=== PATIENT | female | born 1960 | race African-American/Black ===

== ENCOUNTER 2017-03-26 23:40 | Inpatient (IN) | payer MEDICAID ==
[~2017-03-26] VITALS: Ht 157.5 cm; Wt 61.2 kg
[2017-03-27] MEDS ORDERED: DIPHENHYDRAMINE 50MG/ML VIAL IV ONE
[2017-03-27] MEDS ORDERED: METHYLPREDNISOLONE SOD SUCC 125 MG/2 ML VIAL IV ONE
[2017-03-27] MEDS ORDERED: METHYLPREDNISOLONE SOD SUCC 125 MG/2 ML VIAL ONE (00:04)
[2017-03-27] MEDS ORDERED: DIPHENHYDRAMINE 50MG/ML VIAL ONE (00:04)
[2017-03-27] MEDS ORDERED: FAMOTIDINE 20MG/2ML VIAL IV ONE ×2 (00:05)
[2017-03-27 00:32] LABS: BASOPHILS % 1.2 % (0.0-2.0); EOSINOPHILS % 0.5 % (0.0-5.0); HEMATOCRIT. 40.7 % (36.0-48.0); HEMOGLOBIN. 13.6 g/dL (12.0-16.0); LYMPHOCYTES % 33.5 % (20.0-50.0); MEAN PLATELET VOLUME 8.2 fl (7.4-10.4); MONOCYTES % 6.6 % (2.0-8.0); NEUTROPHILS % 58.2 % (40.0-76.0); PLATELET 203 x1000/uL (130-400); RED BLOOD CELL COUNT 4.52 mill/uL (4.2-5.4); RED CELL DISTRIBUTION WIDTH 15.6 % (11.6-14.6)
[2017-03-27 00:51] LABS: CARBON DIOXIDE 26 mEq/L (21-32); CHLORIDE 107 mEq/L (98-107); TROPONIN I < 0.02 ng/mL (0.00-0.04)
[2017-03-27 09:51] VITALS: BP 119/84
[2017-03-27] MEDS ORDERED: DONE5TAB33 PO (10:55)
[2017-03-27] MEDS ORDERED: AMLO10TA4 PO (10:55)
[2017-03-27] MEDS ORDERED: LISI10TA5 PO (10:55)
[2017-03-27] MEDS ORDERED: LEVE750T4 PO (10:55)
[2017-03-27] MEDS ORDERED: SODIUM CHLORIDE 0.9% 500 ML IV SCH (11:03)
[2017-03-27] MEDS ORDERED: HYDROCODONE/ACETAMINOPHEN 5/325MG TABLET PO PRN (11:15)
[2017-03-27] MEDS ORDERED: ONDANSETRON HCL 4MG/2ML VIAL IV PRN (11:15)
[2017-03-27] MEDS ORDERED: IPRATROPIUM/ALBUTEROL 0.5-3(2.5)MG/3ML NEB INH PRN (11:15)
[2017-03-27] MEDS ORDERED: DIPHENHYDRAMINE 50MG/ML VIAL IV SCH (11:15)
[2017-03-27] MEDS ORDERED: METHYLPREDNISOLONE SOD SUCC 40 MG/ML VIAL IV SCH (11:15)
[2017-03-27] MEDS ORDERED: IPRATROPIUM/ALBUTEROL 0.5-3(2.5)MG/3ML NEB HHN SCH (11:15)
[2017-03-27 11:36] VITALS: BP 115/78
[2017-03-27] MEDS: DIPHENHYDRAMINE 50MG/ML VIAL IV SCH ×3 (12:00→23:57)
[2017-03-27] MEDS: METHYLPREDNISOLONE SOD SUCC 40 MG/ML VIAL IV SCH ×2 (12:50→20:59)
[2017-03-27] MEDS: AMLODIPINE 2.5MG TABLET PO SCH (12:50)
[2017-03-27 15:34] VITALS: BP 111/75
[2017-03-27] MEDS: LEVETIRACETAM 500MG TABLET PO SCH (18:40)
[2017-03-27 20:00] VITALS: BP 123/81
[2017-03-27] MEDS: FAMOTIDINE 20MG/2ML VIAL IV SCH (20:59)
[2017-03-27] MEDS ORDERED: FAMOTIDINE 20MG/2ML VIAL IV SCH (21:00)
[2017-03-28] VITALS: BP 119/78
[2017-03-28 04:00] VITALS: BP 110/71
[2017-03-28] MEDS: METHYLPREDNISOLONE SOD SUCC 40 MG/ML VIAL IV SCH ×2 (05:43→13:06)
[2017-03-28] MEDS: DIPHENHYDRAMINE 50MG/ML VIAL IV SCH ×2 (05:43→12:59)
[2017-03-28 08:00] VITALS: BP 118/81
[2017-03-28] MEDS ORDERED: ACETAMINOPHEN 325MG TABLET PO PRN (08:45)
[2017-03-28] MEDS ORDERED: DONEPEZIL HCL 5MG TABLET PO SCH (09:00)
[2017-03-28] MEDS: AMLODIPINE 2.5MG TABLET PO SCH (09:05)
[2017-03-28] MEDS: FAMOTIDINE 20MG/2ML VIAL IV SCH (09:06)
[2017-03-28] MEDS: LEVETIRACETAM 500MG TABLET PO SCH (09:06)
[2017-03-28 12:00] VITALS: BP 132/96
[2017-03-28 14:05] VITALS: BP 132/96
== END 2017-03-28 15:00 | disposition home or self-care (01) | DRG 811 ==
LOC: ER 23:51 → 8WST 03-27 01:40 → ENRESERV 03-27 09:24 → 8WST 03-27 10:02
PROVIDERS: ADMIT Internal Medicine; ATTEND Internal Medicine
DX: T78.3XXA Angioneurotic edema, initial encounter (principal); I10 Essential (primary) hypertension; F10.21 Alcohol dependence, in remission; F17.210 Nicotine dependence, cigarettes, uncomplicated; T46.4X5A Adverse effect of angiotensin-converting-enzyme inhibitors, initial encounter; G40.909 Epilepsy, unspecified, not intractable, without status epilepticus; Z88.8 Allergy status to other drugs, medicaments and biological substances; Y92.89 Other specified places as the place of occurrence of the external cause; Z71.6 Tobacco abuse counseling
CPT/HCPCS: 36415; 71010; 80053; 84484; 85025; 93005; 96374; 96375; 99285; J1200; J2920; J2930; J3490; J7040

== ENCOUNTER 2021-02-13 14:38 | Emergency (ER) | payer MEDICAID, OTHER ==
[~2021-02-13] VITALS: Ht 152.4 cm; Wt 58.0 kg
[~2021-02-13 14:38] MED LIST: AMLO10TA4 PO; DONE5TAB33 PO; LEVE750T4 PO
[2021-02-13 23:12] LABS: HEMATOCRIT. 22.6 % (36.0-48.0); HEMOGLOBIN. 7.1 g/dL (12.0-16.0); MEAN CORPUSCULAR HEMOGLOBIN 22.5 pg (28.0-32.0); MEAN CORPUSCULAR VOLUME 71.5 fL (81.0-99.0); MEAN PLATELET VOLUME 7.6 fl (7.4-10.4); PLATELET 350 x1000/uL (130-400); RED BLOOD CELL COUNT 3.16 mill/uL (4.2-5.4); RED CELL DISTRIBUTION WIDTH 19.6 % (11.6-14.6)
[2021-02-13 23:18] LABS: CHLORIDE 109 mEq/L (98-107)
[2021-02-14] MEDS ORDERED: POTASSIUM CHLORIDE 20MEQ TABLET SR PO ONE
[2021-02-14] MEDS ORDERED: FERR-71 MT (02:01)
[2021-02-14 03:27] VITALS: BP 128/79
[2021-02-14 04:30] LABS: PLATELET ESTIMATE NORMAL
== END 2021-02-14 03:30 | disposition home or self-care (01) ==
LOC: ER 14:38
DX: R06.02 Shortness of breath (principal); D50.9 Iron deficiency anemia, unspecified; I10 Essential (primary) hypertension; Z98.890 Other specified postprocedural states
CPT/HCPCS: 36415; 71045; 71250; 80053; 83880; 84484; 85025; 85379; 93005; 93970; 99285

== ENCOUNTER 2021-03-03 18:03 | Inpatient (IN) | payer MEDICARE, OTHER ==
[~2021-03-03] VITALS: Ht 152.4 cm; Wt 54.0 kg
[~2021-03-03 18:03] MED LIST changes: +FERR-71 MT
[2021-03-03 20:38] LABS: CHLORIDE 110 mEq/L (98-107)
[2021-03-03 23:08] LABS: MEAN CORPUSCULAR HEMOGLOBIN 20.8 pg (28.0-32.0); MEAN CORPUSCULAR VOLUME 69.7 fL (81.0-99.0); MEAN PLATELET VOLUME 7.2 fl (7.4-10.4); PLATELET 421 x1000/uL (130-400); RED BLOOD CELL COUNT 3.02 mill/uL (4.2-5.4); RED CELL DISTRIBUTION WIDTH 19.8 % (11.6-14.6)
[2021-03-03 23:14] LABS: HEMOGLOBIN. 6.3 g/dL (12.0-16.0)
[2021-03-03 23:34] LABS: PLATELET ESTIMATE SLIGHTLY INCREASED
[2021-03-04] MEDS ORDERED: SODIUM CHLORIDE 0.9% 1,000 ML IV ONE (00:30)
[2021-03-04 08:40] VITALS: BP 118/70
[2021-03-04] MEDS ORDERED: ONDANSETRON HCL 4MG/2ML INJ IV PRN (08:45)
[2021-03-04] MEDS ORDERED: CLONIDINE 0.1MG TABLET PO PRN (08:45)
[2021-03-04] MEDS ORDERED: IPRATROPIUM/ALBUTEROL 0.5-3(2.5)MG/3ML NEB HHN PRN (08:45)
[2021-03-04] MEDS ORDERED: DIPHENHYDRAMINE 50MG/ML VIAL IV PRN (08:45)
[2021-03-04] MEDS ORDERED: ACETAMINOPHEN 325MG TABLET PO PRN (08:45)
[2021-03-04 12:00] VITALS: BP 118/70
[2021-03-04 16:00] VITALS: BP 128/82
[2021-03-04 21:04] VITALS: BP 131/81
[2021-03-05 00:10] VITALS: BP 117/79
[2021-03-05 06:46] LABS: HEMATOCRIT. 23.9 % (36.0-48.0); HEMOGLOBIN. 7.5 g/dL (12.0-16.0); MEAN CORPUSCULAR HEMOGLOBIN 22.4 pg (28.0-32.0); MEAN CORPUSCULAR VOLUME 71.3 fL (81.0-99.0); MEAN PLATELET VOLUME 7.9 fl (7.4-10.4); PLATELET 415 x1000/uL (130-400); RED BLOOD CELL COUNT 3.35 mill/uL (4.2-5.4); RED CELL DISTRIBUTION WIDTH 21.2 % (11.6-14.6)
[2021-03-05 06:57] LABS: CHLORIDE 113 mEq/L (98-107)
[2021-03-05 07:05] LABS: LDL CHOLESTEROL 55 mg/dL (5-100)
[2021-03-05 07:07] LABS: TOTAL IRON BINDING CAPACITY 376 ug/dL (250-450)
[2021-03-05 07:08] LABS: HDL CHOLESTEROL 93 mg/dL (40-59)
[2021-03-05 07:21] LABS: FOLIC ACID (FOLATE) SERUM 13.5 ng/mL (>5.38)
[2021-03-05] MEDS: FERROUS SULFATE 325MG TABLET PO SCH ×2 (12:15→18:35)
[2021-03-05 14:04] LABS: PLATELET ESTIMATE INCREASED
[2021-03-05] MEDS ORDERED: POTASSIUM CHLORIDE 20MEQ TABLET SR PO NR (17:45)
[2021-03-05] MEDS: DONEPEZIL HCL 5MG TABLET PO SCH (18:36)
[2021-03-05] MEDS: AMLODIPINE 10MG TABLET PO SCH (18:36)
[2021-03-05 20:00] VITALS: BP 126/79
[2021-03-05] MEDS: LEVETIRACETAM 250MG TABLET PO SCH (21:38)
[2021-03-06] VITALS: BP 120/85
[2021-03-06 04:00] VITALS: BP 111/77
[2021-03-06 06:02] LABS: CHLORIDE 109 mEq/L (98-107)
[2021-03-06 06:16] LABS: HEMATOCRIT. 26.2 % (36.0-48.0); MEAN CORPUSCULAR HEMOGLOBIN 22.1 pg (28.0-32.0); MEAN CORPUSCULAR VOLUME 72.2 fL (81.0-99.0); PLATELET 426 x1000/uL (130-400); RED BLOOD CELL COUNT 3.63 mill/uL (4.2-5.4); RED CELL DISTRIBUTION WIDTH 21.4 % (11.6-14.6)
[2021-03-06 08:00] VITALS: BP 93/71
[2021-03-06] MEDS: DONEPEZIL HCL 5MG TABLET PO SCH (08:56)
[2021-03-06] MEDS: FERROUS SULFATE 325MG TABLET PO SCH ×2 (08:57→13:21)
[2021-03-06] MEDS: AMLODIPINE 10MG TABLET PO SCH (08:57)
[2021-03-06] MEDS: LEVETIRACETAM 250MG TABLET PO SCH ×2 (08:57→09:29)
[2021-03-06 12:00] VITALS: BP 109/70
[2021-03-06 12:15] VITALS: BP 111/77
[2021-03-06 21:23] LABS: PLATELET ESTIMATE INCREASED
== END 2021-03-06 15:28 | disposition home or self-care (01) | DRG 812 ==
LOC: ER 18:03 → 6EST 03-04 01:40 → ENRESERV 03-04 07:21 → CANRESERV 03-04 07:21 → ENRESERV 03-04 07:43
PROVIDERS: ADMIT Internal Medicine; ATTEND Internal Medicine
PROC: 30233N1 Transfusion of Nonautologous Red Blood Cells into Peripheral Vein, Percutaneous Approach (ICD-10-PCS; principal; 2021-03-04)
DX: D50.9 Iron deficiency anemia, unspecified (principal); G40.909 Epilepsy, unspecified, not intractable, without status epilepticus; I10 Essential (primary) hypertension; F17.200 Nicotine dependence, unspecified, uncomplicated; Z88.8 Allergy status to other drugs, medicaments and biological substances; Z79.899 Other long term (current) drug therapy; Z98.891 History of uterine scar from previous surgery
CPT/HCPCS: 36415; 71045; 80048; 80053; 80061; 82607; 82728; 82746; 83540; 83550; 84443; 85025; 86850; 86900; 86920; 93005; 93970; 99285; J7030; P9016

== ENCOUNTER 2021-06-10 16:11 | Inpatient (IN) | payer MEDICARE, MEDICAID ==
[~2021-06-10] VITALS: Ht 165.1 cm; Wt 58.5 kg
[2021-06-10 17:16] LABS: BASOPHILS % 0.8 % (0.0-2.0); HEMATOCRIT. 37.8 % (36.0-48.0); HEMOGLOBIN. 12.1 g/dL (12.0-16.0); MEAN CORPUSCULAR VOLUME 93.7 fL (81.0-99.0); MEAN PLATELET VOLUME 8.5 fl (7.4-10.4); MONOCYTES % 9.9 % (2.0-8.0); NEUTROPHILS % 73.3 % (40.0-76.0); PLATELET 211 x1000/uL (130-400); RED BLOOD CELL COUNT 4.03 mill/uL (4.2-5.4)
[2021-06-10 17:22] LABS: CHLORIDE 109 mEq/L (98-107)
[2021-06-10 17:28] LABS: ETHANOL BLOOD < 10 mg/dL
[2021-06-10] MEDS ORDERED: ASPIRIN 325MG EC TABLET PO ONE (18:15)
[2021-06-10] MEDS ORDERED: ONDANSETRON HCL 4MG/2ML INJ IV STA (18:32)
[2021-06-10] MEDS ORDERED: SODIUM CHLORIDE 0.9% 1,000 ML IV ONE (18:45)
[2021-06-10 19:23] LABS: CLARITY URINE CLEAR (CLEAR); COLOR URINE YELLOW (YELLOW); KETONES URINE NEGATIVE (NEGATIVE); LEUKOCYTE ESTERASE URINE NEGATIVE (NEGATIVE); NITRITE URINE NEGATIVE (NEGATIVE); OCCULT BLOOD URINE NEGATIVE (NEGATIVE); PROTEIN URINE 1+ (NEGATIVE); SPECIFIC GRAVITY URINE 1.016 (1.005-1.030)
[2021-06-10 19:46] LABS: *BENZODIAZEPINES SCREEN URINE NEGATIVE (NEGATIVE); *COCAINE SCREEN URINE NEGATIVE (NEGATIVE); METHADONE URINE SCREEN NEGATIVE (NEGATIVE); OPIATES URINE SCREEN NEGATIVE (NEGATIVE)
[2021-06-10 19:47] LABS: *AMPHETAMINES SCREEN URINE NEGATIVE (NEGATIVE); *BARBITURATES SCREEN URINE NEGATIVE (NEGATIVE); CANNABINOID URINE SCREEN NEGATIVE (NEGATIVE); PHENCYCLIDINE URINE SCREEN NEGATIVE (NEGATIVE)
[2021-06-10] MEDS ORDERED: IOHEXOL-350 100 ML BOTTLE ONE (21:34)
[2021-06-10 22:57] VITALS: BP 154/89
[2021-06-11] VITALS (14 sets, daily range): BP systolic 120–154; BP diastolic 62–117
[2021-06-11] MEDS ORDERED: LORAZEPAM 2MG/ML CPJ IM PRN ×2 (07:00→14:15)
[2021-06-11] MEDS: ASPIRIN 81MG TABLET PO SCH (09:46)
[2021-06-11] MEDS: AMLODIPINE 10MG TABLET PO SCH (09:46)
[2021-06-11] MEDS: ENOXAPARIN 40MG/0.4ML SYR SUBCUT SCH (09:46)
[2021-06-11] MEDS ORDERED: POTASSIUM CHLORIDE 20MEQ TABLET SR PO SCH (13:45)
[2021-06-11] MEDS ORDERED: LEVETIRACETAM 500 MG in SODIUM CHLORIDE 0.9% 100 ML IV SCH (14:15)
[2021-06-11] MEDS ORDERED: LEVETIRACETAM 500MG PREMIX 100 ML IV SCH ×2 (15:00)
[2021-06-11] MEDS ORDERED: LEVETIRACETAM 500MG PREMIX 100 ML IV NR (16:30)
[2021-06-11] MEDS ORDERED: THIAMINE HCL 100 MG in SODIUM CHLORIDE 0.9% 49 ML IV NR (16:30)
[2021-06-11 17:58] LABS: BG BASE EXCESS 4.6 mmol/L (-2.0-2.0); BG CARBOXYHEMOGLOBIN 0.3 % (0.5-1.5); BG DEOXYHEMOGLOBIN 1.5 % (0.0-5.0); BG HCO3 ACT 28.4 mmol/L (22.0-26.0); BG METHEMOGLOBIN 0.3 % (0.0-1.5); BG OXYGEN SATURATION 98.5 % (92.0-98.5); BG OXYHEMOGLOBIN 97.9 % (94.0-97.0); BG PCO2 39.4 mmHg (35.0-45.0); BG PH 7.476 (7.350-7.450); BG PO2 126.4 mmHg (75.0-100.0); BG SAMPLE SITE LEFT RADIAL; BG TOTAL HEMOGLOBIN 12.9 g/dL (12.0-18.0); BG VENT MODE NASAL CANNULA
[2021-06-11] MEDS: LORAZEPAM 2MG/ML CPJ IV PRN (18:34)
[2021-06-11] MEDS ORDERED: LIDOCAINE HCL/PF 1% 2ML VIAL ONE (18:48)
[2021-06-11 19:10] LABS: BG BASE EXCESS 1.2 mmol/L (-2.0-2.0); BG CARBOXYHEMOGLOBIN 0.2 % (0.5-1.5); BG DEOXYHEMOGLOBIN 7.4 % (0.0-5.0); BG FRACTION INSPIRED OXYGEN 40; BG HCO3 ACT 24.8 mmol/L (22.0-26.0); BG METHEMOGLOBIN 0.2 % (0.0-1.5); BG OXYGEN SATURATION 92.6 % (92.0-98.5); BG OXYHEMOGLOBIN 92.2 % (94.0-97.0); BG PCO2 35.6 mmHg (35.0-45.0); BG PO2 66.3 mmHg (75.0-100.0); BG SAMPLE SITE RIGHT RADIAL; BG TOTAL HEMOGLOBIN 12.9 g/dL (12.0-18.0); BG TOTAL RESPIRATORY RATE 24 b/min; BG VENT MODE NASAL CANNULA
[2021-06-11] MEDS ORDERED: LORAZEPAM 2MG/ML CPJ IV NR (19:15)
[2021-06-11] MEDS ORDERED: KCL 20 MEQ/100 ML IV SCH (19:30)
[2021-06-11] MEDS ORDERED: PHENYTOIN SODIUM 1,000 MG in SODIUM CHLORIDE 0.9% 80 ML IV NR (20:00)
[2021-06-11] MEDS: ATORVASTATIN CALCIUM 40MG TABLET PO SCH (21:00)
[2021-06-11] MEDS: ACETAMINOPHEN 650MG SUPP PR PRN (21:28)
[2021-06-11] MEDS: KCL 20MEQ/100ML PREMIX 100 ML IV SCH (22:22)
[2021-06-11] MEDS: LEVETIRACETAM 1,000 MG in SODIUM CHLORIDE 0.9% 100 ML IV SCH (23:59)
[2021-06-12] VITALS (40 sets, daily range): BP systolic 73–166; BP diastolic 32–115
[2021-06-12] MEDS: KCL 20MEQ/100ML PREMIX 100 ML IV SCH ×3 (00:02→12:52)
[2021-06-12 00:13] LABS: CLARITY URINE CLEAR (CLEAR); COLOR URINE YELLOW (YELLOW); KETONES URINE 1+ (NEGATIVE); LEUKOCYTE ESTERASE URINE NEGATIVE (NEGATIVE); NITRITE URINE NEGATIVE (NEGATIVE); OCCULT BLOOD URINE NEGATIVE (NEGATIVE); PH URINE 6.5 (4.5-8.0); PROTEIN URINE 2+ (NEGATIVE); SPECIFIC GRAVITY URINE 1.019 (1.005-1.030)
[2021-06-12] MEDS: LORAZEPAM 2MG/ML CPJ IV PRN ×3 (05:15→20:59)
[2021-06-12 05:32] LABS: BASOPHILS % 0.3 % (0.0-2.0); EOSINOPHILS % 0.2 % (0.0-5.0); HEMATOCRIT. 36.5 % (36.0-48.0); HEMOGLOBIN. 11.5 g/dL (12.0-16.0); LYMPHOCYTES % 13.1 % (20.0-50.0); MEAN CORPUSCULAR HEMOGLOBIN 29.8 pg (28.0-32.0); MEAN CORPUSCULAR VOLUME 94.3 fL (81.0-99.0); MEAN PLATELET VOLUME 8.9 fl (7.4-10.4); MONOCYTES % 9.1 % (2.0-8.0); NEUTROPHILS % 77.3 % (40.0-76.0); PLATELET 210 x1000/uL (130-400); RED BLOOD CELL COUNT 3.87 mill/uL (4.2-5.4); RED CELL DISTRIBUTION WIDTH 18.2 % (11.6-14.6)
[2021-06-12 05:34] LABS: CHLORIDE 110 mEq/L (98-107)
[2021-06-12] MEDS: AMLODIPINE 10MG TABLET PO SCH (08:47)
[2021-06-12] MEDS: LEVETIRACETAM 1,000 MG in SODIUM CHLORIDE 0.9% 100 ML IV SCH ×2 (08:55→21:01)
[2021-06-12] MEDS: ENOXAPARIN 40MG/0.4ML SYR SUBCUT SCH (08:55)
[2021-06-12] MEDS: ASPIRIN 81MG TABLET PO SCH (08:56)
[2021-06-12] MEDS: CHLORDIAZEPOXIDE 25MG CAPSULE PO SCH ×2 (12:03→21:31)
[2021-06-12] MEDS: THIAMINE HCL 100MG TABLET PO SCH (13:09)
[2021-06-12] MEDS: MULTIVITAMINS,THER W-MINERALS TABLET PO SCH (13:09)
[2021-06-12] MEDS: FOLIC ACID 1MG TABLET PO SCH (13:10)
[2021-06-12] MEDS: ATORVASTATIN CALCIUM 40MG TABLET PO SCH (21:31)
[2021-06-13] VITALS (12 sets, daily range): BP systolic 113–178; BP diastolic 65–99
[2021-06-13] MEDS: CHLORDIAZEPOXIDE 25MG CAPSULE PO SCH ×3 (06:26→21:23)
[2021-06-13 08:51] LABS: CHLORIDE 107 mEq/L (98-107)
[2021-06-13] MEDS ORDERED: POTASSIUM CHLORIDE 20MEQ TABLET SR PO NR ×2 (09:00→21:00)
[2021-06-13 09:02] LABS: BASOPHILS % 0.4 % (0.0-2.0); HEMATOCRIT. 36.3 % (36.0-48.0); HEMOGLOBIN. 11.5 g/dL (12.0-16.0); LYMPHOCYTES % 14.8 % (20.0-50.0); MEAN CORPUSCULAR HEMOGLOBIN 30.1 pg (28.0-32.0); MEAN CORPUSCULAR VOLUME 94.8 fL (81.0-99.0); MEAN PLATELET VOLUME 8.9 fl (7.4-10.4); MONOCYTES % 10.7 % (2.0-8.0); NEUTROPHILS % 74.1 % (40.0-76.0); PLATELET 202 x1000/uL (130-400); RED BLOOD CELL COUNT 3.83 mill/uL (4.2-5.4); RED CELL DISTRIBUTION WIDTH 18.3 % (11.6-14.6)
[2021-06-13] MEDS: FOLIC ACID 1MG TABLET PO SCH (09:44)
[2021-06-13] MEDS: ASPIRIN 81MG TABLET PO SCH (09:44)
[2021-06-13] MEDS: THIAMINE HCL 100MG TABLET PO SCH (09:44)
[2021-06-13] MEDS: MULTIVITAMINS,THER W-MINERALS TABLET PO SCH (09:44)
[2021-06-13] MEDS: ENOXAPARIN 40MG/0.4ML SYR SUBCUT SCH (09:45)
[2021-06-13] MEDS: AMLODIPINE 10MG TABLET PO SCH (09:45)
[2021-06-13] MEDS: LEVETIRACETAM 1,000 MG in SODIUM CHLORIDE 0.9% 100 ML IV SCH ×2 (10:22→21:23)
[2021-06-13] MEDS: ATORVASTATIN CALCIUM 40MG TABLET PO SCH (21:23)
[2021-06-13] MEDS: LORAZEPAM 2MG/ML CPJ IV PRN (23:46)
[2021-06-14] VITALS (12 sets, daily range): BP systolic 111–146; BP diastolic 54–96
[2021-06-14] MEDS: CHLORDIAZEPOXIDE 25MG CAPSULE PO SCH ×3 (05:27→20:50)
[2021-06-14 07:05] LABS: CHLORIDE 108 mEq/L (98-107)
[2021-06-14 07:14] LABS: BASOPHILS % 0.4 % (0.0-2.0); EOSINOPHILS % 0.3 % (0.0-5.0); HEMATOCRIT. 38.1 % (36.0-48.0); HEMOGLOBIN. 11.7 g/dL (12.0-16.0); LYMPHOCYTES % 16.9 % (20.0-50.0); MEAN CORPUSCULAR HEMOGLOBIN 30.3 pg (28.0-32.0); MEAN CORPUSCULAR VOLUME 98.4 fL (81.0-99.0); MEAN PLATELET VOLUME 8.5 fl (7.4-10.4); MONOCYTES % 9.5 % (2.0-8.0); NEUTROPHILS % 72.9 % (40.0-76.0); PLATELET 169 x1000/uL (130-400); RED BLOOD CELL COUNT 3.87 mill/uL (4.2-5.4); RED CELL DISTRIBUTION WIDTH 18.3 % (11.6-14.6)
[2021-06-14] MEDS: ENOXAPARIN 40MG/0.4ML SYR SUBCUT SCH (08:27)
[2021-06-14] MEDS: MULTIVITAMINS,THER W-MINERALS TABLET PO SCH (08:27)
[2021-06-14] MEDS: THIAMINE HCL 100MG TABLET PO SCH (08:27)
[2021-06-14] MEDS: ASPIRIN 81MG TABLET PO SCH (08:27)
[2021-06-14] MEDS: LEVETIRACETAM 1,000 MG in SODIUM CHLORIDE 0.9% 100 ML IV SCH ×2 (08:27→21:05)
[2021-06-14] MEDS: FOLIC ACID 1MG TABLET PO SCH (08:27)
[2021-06-14] MEDS: AMLODIPINE 10MG TABLET PO SCH (08:28)
[2021-06-14] MEDS ORDERED: POTASSIUM CHLORIDE 20MEQ TABLET SR PO ONE ×3 (11:00→17:00)
[2021-06-14] MEDS: ATORVASTATIN CALCIUM 40MG TABLET PO SCH (20:51)
[2021-06-15] VITALS (12 sets, daily range): BP systolic 112–151; BP diastolic 58–99
[2021-06-15] MEDS: CHLORDIAZEPOXIDE 25MG CAPSULE PO SCH ×3 (05:43→21:22)
[2021-06-15 08:34] LABS: BASOPHILS % 0.2 % (0.0-2.0); EOSINOPHILS % 0.2 % (0.0-5.0); HEMATOCRIT. 34.1 % (36.0-48.0); LYMPHOCYTES % 15.8 % (20.0-50.0); MEAN CORPUSCULAR HEMOGLOBIN 30.5 pg (28.0-32.0); MEAN CORPUSCULAR VOLUME 94.5 fL (81.0-99.0); MEAN PLATELET VOLUME 9.1 fl (7.4-10.4); MONOCYTES % 12.3 % (2.0-8.0); NEUTROPHILS % 71.5 % (40.0-76.0); PLATELET 195 x1000/uL (130-400); RED BLOOD CELL COUNT 3.61 mill/uL (4.2-5.4); RED CELL DISTRIBUTION WIDTH 17.9 % (11.6-14.6)
[2021-06-15] MEDS: FOLIC ACID 1MG TABLET PO SCH (08:36)
[2021-06-15] MEDS: THIAMINE HCL 100MG TABLET PO SCH (08:36)
[2021-06-15] MEDS: ASPIRIN 81MG TABLET PO SCH (08:36)
[2021-06-15] MEDS: MULTIVITAMINS,THER W-MINERALS TABLET PO SCH (08:36)
[2021-06-15] MEDS: ENOXAPARIN 40MG/0.4ML SYR SUBCUT SCH (08:37)
[2021-06-15] MEDS: AMLODIPINE 10MG TABLET PO SCH (08:38)
[2021-06-15] MEDS: LORAZEPAM 2MG/ML CPJ IV PRN (08:39)
[2021-06-15] MEDS: LEVETIRACETAM 1,000 MG in SODIUM CHLORIDE 0.9% 100 ML IV SCH (08:42)
[2021-06-15 08:54] LABS: CHLORIDE 111 mEq/L (98-107)
[2021-06-15] MEDS ORDERED: LISINOPRIL 2.5MG TABLET PO SCH (09:15)
[2021-06-15] MEDS ORDERED: NIFEDIPINE XL 30MG TAB PO SCH (09:30)
[2021-06-15] MEDS: METOPROLOL TARTRATE 25MG TABLET PO SCH ×2 (09:49→20:38)
[2021-06-15] MEDS: LEVETIRACETAM 500MG TABLET PO SCH (20:30)
[2021-06-15] MEDS: ATORVASTATIN CALCIUM 40MG TABLET PO SCH (20:30)
[2021-06-15] MEDS ORDERED: DIPHENHYDRAMINE 50MG/ML VIAL IV PRN (22:30)
[2021-06-16] VITALS (12 sets, daily range): BP systolic 90–159; BP diastolic 57–100
[2021-06-16] MEDS ORDERED: CHLORDIAZEPOXIDE 25MG CAPSULE PO SCH
[2021-06-16] MEDS: CHLORDIAZEPOXIDE 25MG CAPSULE PO SCH ×4 (00:51→18:07)
[2021-06-16] MEDS: ENOXAPARIN 40MG/0.4ML SYR SUBCUT SCH (09:36)
[2021-06-16] MEDS: MULTIVITAMINS,THER W-MINERALS TABLET PO SCH (09:37)
[2021-06-16] MEDS: ASPIRIN 81MG TABLET PO SCH (09:37)
[2021-06-16] MEDS: AMLODIPINE 10MG TABLET PO SCH (09:37)
[2021-06-16] MEDS: THIAMINE HCL 100MG TABLET PO SCH (09:38)
[2021-06-16] MEDS: LEVETIRACETAM 500MG TABLET PO SCH ×2 (09:39→21:28)
[2021-06-16] MEDS: FOLIC ACID 1MG TABLET PO SCH (09:39)
[2021-06-16] MEDS: METOPROLOL TARTRATE 25MG TABLET PO SCH ×2 (09:40→21:35)
[2021-06-16 10:12] LABS: BASOPHILS % 0.3 % (0.0-2.0); EOSINOPHILS % 0.2 % (0.0-5.0); HEMATOCRIT. 34.2 % (36.0-48.0); HEMOGLOBIN. 10.8 g/dL (12.0-16.0); LYMPHOCYTES % 14.3 % (20.0-50.0); MEAN CORPUSCULAR HEMOGLOBIN 29.5 pg (28.0-32.0); MEAN CORPUSCULAR VOLUME 93.2 fL (81.0-99.0); MONOCYTES % 13.4 % (2.0-8.0); NEUTROPHILS % 71.8 % (40.0-76.0); PLATELET 207 x1000/uL (130-400); RED BLOOD CELL COUNT 3.67 mill/uL (4.2-5.4)
[2021-06-16 10:17] LABS: CHLORIDE 108 mEq/L (98-107)
[2021-06-16 12:00] LABS: BG BASE EXCESS 0.4 mmol/L (-2.0-2.0); BG CARBOXYHEMOGLOBIN 0.3 % (0.5-1.5); BG DEOXYHEMOGLOBIN 8.9 % (0.0-5.0); BG FRACTION INSPIRED OXYGEN 21; BG HCO3 ACT 23.4 mmol/L (22.0-26.0); BG METHEMOGLOBIN 0.1 % (0.0-1.5); BG OXYGEN SATURATION 91.1 % (92.0-98.5); BG OXYHEMOGLOBIN 90.7 % (94.0-97.0); BG PCO2 32.7 mmHg (35.0-45.0); BG PH 7.473 (7.350-7.450); BG PO2 62.5 mmHg (75.0-100.0); BG SAMPLE SITE RIGHT RADIAL; BG TOTAL HEMOGLOBIN 12.1 g/dL (12.0-18.0); BG VENT MODE ROOM AIR
[2021-06-16] MEDS: ATORVASTATIN CALCIUM 40MG TABLET PO SCH (21:26)
[2021-06-16] MEDS: ACETAMINOPHEN 650MG SUPP PR PRN (21:35)
[2021-06-17] VITALS (11 sets, daily range): BP systolic 102–163; BP diastolic 53–101
[2021-06-17] MEDS: CHLORDIAZEPOXIDE 25MG CAPSULE PO SCH ×4 (00:08→17:43)
[2021-06-17] MEDS: LORAZEPAM 2MG/ML CPJ IV PRN (00:54)
[2021-06-17] MEDS: MULTIVITAMINS,THER W-MINERALS TABLET PO SCH (08:27)
[2021-06-17] MEDS: LEVETIRACETAM 500MG TABLET PO SCH ×2 (08:27→20:51)
[2021-06-17] MEDS: ASPIRIN 81MG TABLET PO SCH (08:28)
[2021-06-17] MEDS: METOPROLOL TARTRATE 25MG TABLET PO SCH ×2 (08:28→20:50)
[2021-06-17] MEDS: AMLODIPINE 10MG TABLET PO SCH (08:28)
[2021-06-17] MEDS: THIAMINE HCL 100MG TABLET PO SCH (08:28)
[2021-06-17] MEDS: FOLIC ACID 1MG TABLET PO SCH (08:28)
[2021-06-17] MEDS: ENOXAPARIN 40MG/0.4ML SYR SUBCUT SCH (08:28)
[2021-06-17] MEDS: ATORVASTATIN CALCIUM 40MG TABLET PO SCH (20:51)
[2021-06-18] VITALS (11 sets, daily range): BP systolic 106–129; BP diastolic 57–85
[2021-06-18] MEDS: LORAZEPAM 2MG/ML CPJ IV PRN (00:32)
[2021-06-18] MEDS: CHLORDIAZEPOXIDE 25MG CAPSULE PO SCH ×4 (00:32→18:24)
[2021-06-18] MEDS: ASPIRIN 81MG TABLET PO SCH (09:43)
[2021-06-18] MEDS: FOLIC ACID 1MG TABLET PO SCH (09:43)
[2021-06-18] MEDS: METOPROLOL TARTRATE 25MG TABLET PO SCH ×2 (09:43→21:44)
[2021-06-18] MEDS: THIAMINE HCL 100MG TABLET PO SCH (09:43)
[2021-06-18] MEDS: AMLODIPINE 10MG TABLET PO SCH (09:43)
[2021-06-18] MEDS: MULTIVITAMINS,THER W-MINERALS TABLET PO SCH (09:43)
[2021-06-18] MEDS: LEVETIRACETAM 500MG TABLET PO SCH ×2 (09:44→21:43)
[2021-06-18] MEDS: ENOXAPARIN 40MG/0.4ML SYR SUBCUT SCH (09:44)
[2021-06-18] MEDS: ATORVASTATIN CALCIUM 40MG TABLET PO SCH (21:43)
[2021-06-19] VITALS (12 sets, daily range): BP systolic 106–138; BP diastolic 69–94
[2021-06-19] MEDS: CHLORDIAZEPOXIDE 25MG CAPSULE PO SCH ×4 (00:15→17:18)
[2021-06-19] MEDS: THIAMINE HCL 100MG TABLET PO SCH (10:24)
[2021-06-19] MEDS: LEVETIRACETAM 500MG TABLET PO SCH ×2 (10:25→21:16)
[2021-06-19] MEDS: MULTIVITAMINS,THER W-MINERALS TABLET PO SCH (10:25)
[2021-06-19] MEDS: ASPIRIN 81MG TABLET PO SCH (10:25)
[2021-06-19] MEDS: METOPROLOL TARTRATE 25MG TABLET PO SCH ×2 (10:26→21:20)
[2021-06-19] MEDS: AMLODIPINE 10MG TABLET PO SCH (10:26)
[2021-06-19] MEDS: ENOXAPARIN 40MG/0.4ML SYR SUBCUT SCH (10:27)
[2021-06-19] MEDS: FOLIC ACID 1MG TABLET PO SCH (10:27)
[2021-06-19] MEDS: ATORVASTATIN CALCIUM 40MG TABLET PO SCH (21:16)
[2021-06-20] VITALS (11 sets, daily range): BP systolic 90–151; BP diastolic 58–87
[2021-06-20] MEDS: CHLORDIAZEPOXIDE 25MG CAPSULE PO SCH ×2 (00:09→05:38)
[2021-06-20] MEDS: MULTIVITAMINS,THER W-MINERALS TABLET PO SCH (08:24)
[2021-06-20] MEDS: ENOXAPARIN 40MG/0.4ML SYR SUBCUT SCH (08:24)
[2021-06-20] MEDS: ASPIRIN 81MG TABLET PO SCH (08:24)
[2021-06-20] MEDS: FOLIC ACID 1MG TABLET PO SCH (08:25)
[2021-06-20] MEDS: THIAMINE HCL 100MG TABLET PO SCH (08:25)
[2021-06-20] MEDS: METOPROLOL TARTRATE 25MG TABLET PO SCH ×2 (08:25→22:00)
[2021-06-20] MEDS: LEVETIRACETAM 500MG TABLET PO SCH ×2 (08:25→21:57)
[2021-06-20] MEDS: AMLODIPINE 10MG TABLET PO SCH (08:26)
[2021-06-20] MEDS: ATORVASTATIN CALCIUM 40MG TABLET PO SCH (21:57)
[2021-06-21] VITALS (7 sets, daily range): BP systolic 107–141; BP diastolic 70–82
[2021-06-21] MEDS: THIAMINE HCL 100MG TABLET PO SCH (09:20)
[2021-06-21] MEDS: FOLIC ACID 1MG TABLET PO SCH (09:20)
[2021-06-21] MEDS: ASPIRIN 81MG TABLET PO SCH (09:20)
[2021-06-21] MEDS: AMLODIPINE 10MG TABLET PO SCH (09:20)
[2021-06-21] MEDS: METOPROLOL TARTRATE 25MG TABLET PO SCH ×2 (09:21→20:48)
[2021-06-21] MEDS: MULTIVITAMINS,THER W-MINERALS TABLET PO SCH (09:21)
[2021-06-21] MEDS: LEVETIRACETAM 500MG TABLET PO SCH ×2 (09:21→20:48)
[2021-06-21] MEDS: ENOXAPARIN 40MG/0.4ML SYR SUBCUT SCH (09:22)
[2021-06-21] MEDS: ATORVASTATIN CALCIUM 40MG TABLET PO SCH (20:48)
[2021-06-22] VITALS (8 sets, daily range): BP systolic 108–125; BP diastolic 67–90
[2021-06-22 06:51] LABS: BASOPHILS % 0.6 % (0.0-2.0); EOSINOPHILS % 0.5 % (0.0-5.0); HEMATOCRIT. 37.6 % (36.0-48.0); HEMOGLOBIN. 12.5 g/dL (12.0-16.0); LYMPHOCYTES % 13.2 % (20.0-50.0); MEAN CORPUSCULAR HEMOGLOBIN 30.9 pg (28.0-32.0); MEAN CORPUSCULAR VOLUME 92.6 fL (81.0-99.0); MEAN PLATELET VOLUME 9.1 fl (7.4-10.4); MONOCYTES % 14.5 % (2.0-8.0); NEUTROPHILS % 71.2 % (40.0-76.0); PLATELET 340 x1000/uL (130-400); RED BLOOD CELL COUNT 4.06 mill/uL (4.2-5.4); RED CELL DISTRIBUTION WIDTH 17.5 % (11.6-14.6)
[2021-06-22 07:57] LABS: CHLORIDE 103 mEq/L (98-107)
[2021-06-22] MEDS: METOPROLOL TARTRATE 25MG TABLET PO SCH ×2 (09:00→21:45)
[2021-06-22] MEDS: AMLODIPINE 10MG TABLET PO SCH (09:00)
[2021-06-22] MEDS: ENOXAPARIN 40MG/0.4ML SYR SUBCUT SCH (10:06)
[2021-06-22] MEDS: FOLIC ACID 1MG TABLET PO SCH (10:07)
[2021-06-22] MEDS: MULTIVITAMINS,THER W-MINERALS TABLET PO SCH (10:07)
[2021-06-22] MEDS: LEVETIRACETAM 500MG TABLET PO SCH ×2 (10:07→21:45)
[2021-06-22] MEDS: ASPIRIN 81MG TABLET PO SCH (10:08)
[2021-06-22] MEDS: THIAMINE HCL 100MG TABLET PO SCH (10:14)
[2021-06-22] MEDS: ACETAMINOPHEN 650MG SUPP PR PRN (13:40)
[2021-06-22] MEDS: CEPHALEXIN 250MG CAPSULE PO SCH ×3 (15:49→21:49)
[2021-06-22] MEDS ORDERED: MUPIROCIN 2% OINT 22GM NS SCH (17:00)
[2021-06-22] MEDS: ATORVASTATIN CALCIUM 40MG TABLET PO SCH (21:45)
[2021-06-23 04:00] VITALS: BP 111/79
[2021-06-23 08:00] VITALS: BP 115/81
[2021-06-23] MEDS: ASPIRIN 81MG TABLET PO SCH (10:14)
[2021-06-23] MEDS: THIAMINE HCL 100MG TABLET PO SCH (10:14)
[2021-06-23] MEDS: FOLIC ACID 1MG TABLET PO SCH (10:14)
[2021-06-23] MEDS: AMLODIPINE 10MG TABLET PO SCH (10:15)
[2021-06-23] MEDS: MULTIVITAMINS,THER W-MINERALS TABLET PO SCH (10:18)
[2021-06-23] MEDS: METOPROLOL TARTRATE 25MG TABLET PO SCH (10:18)
[2021-06-23] MEDS: ENOXAPARIN 40MG/0.4ML SYR SUBCUT SCH (10:19)
[2021-06-23] MEDS: LEVETIRACETAM 500MG TABLET PO SCH (10:28)
[2021-06-23] MEDS: CEPHALEXIN 250MG CAPSULE PO SCH (11:01)
[2021-06-23 12:00] VITALS: BP 106/76
[2021-06-23 16:00] VITALS: BP 112/58
[2021-06-23 17:09] VITALS: BP 115/81
[2021-06-23] MEDS ORDERED: SULFAMETHOXAZOLE/TRIMETHOPRIM 800/160MG TABLET PO SCH (21:00)
== END 2021-06-23 17:45 | DRG 74 ==
LOC: ER 16:11 → 8WST 19:53 → ENRESERV 21:46 → 5EST 06-11 15:46 → MICUSO 06-11 19:25 → 5EST 06-12 20:31 → 6EST 06-22 18:07
PROVIDERS: ADMIT Internal Medicine; ATTEND Internal Medicine
PROC: 4A10X4Z Monitoring of Central Nervous Electrical Activity, External Approach (ICD-10-PCS; principal; 2021-06-12)
DX: G90.8 Other disorders of autonomic nervous system (principal); L03.113 Cellulitis of right upper limb; E87.0 Hyperosmolality and hypernatremia; N17.9 Acute kidney failure, unspecified; F10.139 Alcohol abuse with withdrawal, unspecified; G40.901 Epilepsy, unspecified, not intractable, with status epilepticus; B95.62 Methicillin resistant Staphylococcus aureus infection as the cause of diseases classified elsewhere; E87.6 Hypokalemia; E87.8 Other disorders of electrolyte and fluid balance, not elsewhere classified; I10 Essential (primary) hypertension; D64.9 Anemia, unspecified; Z88.8 Allergy status to other drugs, medicaments and biological substances; Z79.899 Other long term (current) drug therapy; Z71.41 Alcohol abuse counseling and surveillance of alcoholic; Z20.822 Contact with and (suspected) exposure to COVID-19; Z87.09 Personal history of other diseases of the respiratory system
CPT/HCPCS: 36415; 36600; 70496; 70498; 70551; 71045; 80048; 80053; 80185; 80305; 80320; 81003; 82140; 82375; 82805; 82962; 83735; 84132; 84484; 85025; 87070; 87077; 87186; 87426; 92610; 93005; 93306; 93880; 95816; 97162; 97530; 99285; J1165; J1200; J1650; J1953; J2060; J3411; J3480; J3490; J7030; J7050; Q9967; A4315; G0480